=== PATIENT | female | born 1950 | race Caucasian/White ===

== ENCOUNTER 2020-10-17 10:07 | Outpatient (CLI) | payer OTHER, SELFPAY ==
[2020-10-17 18:35] LABS: Basophils Absolute Auto 0.1 K/mm3 (0.0-0.1); Basophils Percent Auto 0.7 % (0.2-1.2); Eosinophils Absolute Auto 0.2 K/mm3 (0-0.3); Eosinophils Percent Auto 2.4 % (0-4.4); Hematocrit 44.9 % (37.0-47.0); Hemoglobin 14.5 g/dL (12.0-15.0); Immature Granulocyte Absolute 0.01 K/mm3 (0.00-0.031); Immature Granulocyte Percent A 0.1 % (0-0.5); Lymphocytes Absolute Auto 2.99 K/mm3 (0.9-3.2); Lymphocytes Percent Auto 35.9 % (18.3-44.2); Mean Corpuscular HGB Conc 32.3 g/dl (32-36); Mean Corpuscular Hemoglobin 28.3 pg (26-34); Mean Corpuscular Volume 87.7 fl (80-100); Mean Platelet Volume 11.1 fl (7.4-10.4); Monocytes Absolute Auto 0.6 K/mm3 (0.1-0.6); Monocytes Percent Auto 7.3 % (2.6-8.5); Neutrophils Absolute Auto 4.5 K/mm3 (1.3-6.7); Neutrophils Percent Auto 53.6 % (45.5-73.1); Platelet Count Result 287 k/mm3 (150-375); Red Blood Count 5.12 M/mm3 (4.2-5.4); Red Cell Distribution Width 13.7 % (11.5-14.5); White Blood Count 8.3 K/mm3 (4.5-10.0)
[2020-10-17 18:41] LABS: Add Urine Microscopic? YES; Appearance Urine Turbid (Clear); Bacteria Urine 4+ /hpf; Bilirubin Urine Negative (Negative); Blood Urine Negative (Negative); Color Urine Yellow (Yellow); Glucose Urine UA Negative (Negative); Ketones Urine Negative (Negative); Leukocyte Esterase Ur Negative LEU/UL (Negative); Mucus Urine Moderate /lpf; Nitrate Urine Negative (Negative); Protein Urine Negative (Negative); Specific Grav Ur 1.026 (1.001-1.035); Squamous Epithelial Cell Urine Rare /hpf (Few); Urobilinogen Urine Negative mg/dL (<2.0)
[2020-10-17 18:48] LABS: Alanine Aminotransferase 39 U/L (4-35); Albumin Level 4.6 g/dL (3.5-5.1); Alkaline Phosphatase 49 U/L (38-126); Anion Gap 5 mmol/L (8-16); Aspartate Amino Transferase 36 U/L (14-36); Bilirubin,Total 0.6 mg/dL (0.2-1.3); Blood Urea Nitrogen 17 mg/dL (7-17); Calcium 9.7 mg/dL (8.4-10.2); Carbon Dioxide 29 mmol/L (22-30); Chloride 103 mmol/L (98-107); Cholesterol 141 mg/dL (0-200); Estimated Glomerular Filt Rate > 60; Glucose 105 mg/dL (65-105); HDL Direct 35 mg/dL; Potassium 4.2 mmol/L (3.4-5.0); Sodium 137 mmol/L (137-145); Triglycerides 190 mg/dL (<150)
[2020-10-17 18:59] LABS: Vitamin D 25 Hydroxy 37.2 ng/mL
[2020-10-17 19:00] LABS: LDL Cholesterol Direct 67 mg/dL
== END 2020-10-17 10:08 | disposition home or self-care (01) ==
LOC: ANHBWCLAB 10:09
PROVIDERS: PCP Family Medicine; Visit Provider Family Medicine
DX: F51.04 Psychophysiologic insomnia (principal); Z79.899 Other long term (current) drug therapy; R79.89 Other specified abnormal findings of blood chemistry; E11.9 Type 2 diabetes mellitus without complications
CPT/HCPCS: 36415; 80053; 80061; 81001; 82306; 83036; 84443; 85025

== ENCOUNTER 2020-10-28 13:25 | Outpatient (CLI) | payer OTHER, SELFPAY ==
[2020-10-28 19:40] LABS: Add Urine Microscopic? YES; Appearance Urine Clear (Clear); Bilirubin Urine Negative (Negative); Blood Urine Negative (Negative); Color Urine Yellow (Yellow); Glucose Urine UA Negative (Negative); Ketones Urine Negative (Negative); Leukocyte Esterase Ur 1+ LEU/UL (NEGATIVE); Nitrate Urine Negative (Negative); Protein Urine Negative (Negative); RBC Urine 0-2 /hpf (0-2); Specific Grav Ur 1.016 (1.001-1.035); Squamous Epithelial Cell Urine Occasional /hpf (Few); Urobilinogen Urine Negative mg/dL (<2.0); WBC Urine 0-3 /hpf (0-3)
== END 2020-10-28 13:26 | disposition home or self-care (01) ==
PROVIDERS: PCP Family Medicine; Visit Provider Family Medicine
DX: R82.90 Unspecified abnormal findings in urine (principal)
CPT/HCPCS: 81001; 87077; 87086; 87088; 87186

== ENCOUNTER 2021-04-23 09:37 | Outpatient (CLI) | payer OTHER, SELFPAY ==
[2021-04-23 18:49] LABS: Hemoglobin 13.5 g/dL (12.0-15.0); Mean Corpuscular HGB Conc 32.1 g/dl (32-36); Mean Corpuscular Volume 90.3 fl (80-100); Mean Platelet Volume 11.4 fl (7.4-10.4); Platelet Count Result 264 k/mm3 (150-375); Red Blood Count 4.65 M/mm3 (4.2-5.4); Red Cell Distribution Width 13.6 % (11.5-14.5); White Blood Count 8.2 K/mm3 (4.5-10.0)
[2021-04-23 19:52] LABS: Vitamin D 25 Hydroxy 37.7 ng/mL
[2021-04-23 20:13] LABS: Alanine Aminotransferase 42 U/L (4-35); Albumin Level 4.7 g/dL (3.5-5.1); Alkaline Phosphatase 53 U/L (38-126); Anion Gap 12 mmol/L (8-16); Aspartate Amino Transferase 34 U/L (14-36); Bilirubin,Total 0.7 mg/dL (0.2-1.3); Blood Urea Nitrogen 18 mg/dL (7-17); Carbon Dioxide 21 mmol/L (22-30); Chloride 104 mmol/L (98-107); Cholesterol 137 mg/dL (0-200); Estimated Glomerular Filt Rate > 60; Glucose 102 mg/dL (65-110); HDL Direct 37 mg/dL; Potassium 4.2 mmol/L (3.4-5.0); Sodium 137 mmol/L (137-145); Triglycerides 220 mg/dL (<150)
[2021-04-23 20:17] LABS: Hemoglobin A1C 6.4 % (<5.7)
[2021-04-23 20:23] LABS: LDL Cholesterol Direct 51 mg/dL
[2021-04-28 01:18] LABS: Vitamin D 1,25 (OH)2 Total 46 pg/mL (18-72); Vitamin D2 1,25 (OH)2 <8 pg/mL; Vitamin D3 1,25 (OH)2 46 pg/mL
== END 2021-04-23 09:38 | disposition home or self-care (01) ==
PROVIDERS: PCP Family Medicine; Visit Provider Family Medicine
DX: E11.9 Type 2 diabetes mellitus without complications (principal); I10 Essential (primary) hypertension; R79.89 Other specified abnormal findings of blood chemistry; E55.9 Vitamin D deficiency, unspecified
CPT/HCPCS: 36415; 80053; 80061; 82306; 82652; 83036; 85027

== ENCOUNTER → 2021-08-04 13:33 | Outpatient (CLI) | payer OTHER, SELFPAY ==
--- NOTE | ~2021-08-04 | MM_ITS ---
EXAMINATION: MM screening [facility] BI w lara HISTORY: Screening mammogram TECHNIQUE: Craniocaudal and mediolateral oblique 3-D tomosynthesis images were obtained and synthetic 2-D images were generated. CAD analysis was submitted and interpreted. COMPARISON: No prior mammogram is available for comparison at this institution. BREAST PARENCHYMAL COMPOSITION: The breasts are almost entirely fatty. FINDINGS: There is no evidence of suspicious mass, calcification, or architectural distortion to sugg est malignancy in either breast. There has been no suspicious interval change. IMPRESSION: 1. No mammographic evidence of malignancy. 2. Recommend routine screening mammography in one year. BI-RADS Category 1: Negative Reviewed, dictated and finalized at location A. LOPMENT WRITER
== END ==
PROVIDERS: PCP Family Medicine; Visit Provider Family Medicine
DX: Z12.31 Encounter for screening mammogram for malignant neoplasm of breast (principal)
CPT/HCPCS: 77063; 77067

== ENCOUNTER 2021-10-28 09:39 | Outpatient (CLI) | payer OTHER, SELFPAY ==
[2021-10-28 19:10] LABS: Hematocrit 42.7 % (37.0-47.0); Mean Corpuscular HGB Conc 32.8 g/dl (32-36); Mean Corpuscular Volume 88.6 fl (80-100); Mean Platelet Volume 10.5 fl (7.4-10.4); Platelet Count Result 342 k/mm3 (150-375); Red Blood Count 4.82 M/mm3 (4.2-5.4); Red Cell Distribution Width 12.7 % (11.5-14.5); White Blood Count 9.1 K/mm3 (4.5-10.0)
[2021-10-28 19:35] LABS: Alanine Aminotransferase 63 U/L (4-35); Albumin Level 4.5 g/dL (3.5-5.1); Alkaline Phosphatase 51 U/L (38-126); Anion Gap 12 mmol/L (8-16); Aspartate Amino Transferase 56 U/L (14-36); Bilirubin,Total 0.4 mg/dL (0.2-1.3); Blood Urea Nitrogen 16 mg/dL (7-17); Calcium 9.4 mg/dL (8.4-10.2); Carbon Dioxide 26 mmol/L (22-30); Chloride 100 mmol/L (98-107); Estimated Glomerular Filt Rate > 60; Glucose 109 mg/dL (65-110); Potassium 4.1 mmol/L (3.4-5.0); Sodium 138 mmol/L (137-145)
[2021-10-28 19:45] LABS: Creatinine Urine 77.7 mg/dL
[2021-10-28 19:49] LABS: MALB Creatinine Ratio 8.1 mg/g (0-30); Microalbumin Urine Random 6.3 mg/L (0-16.7)
[2021-10-28 19:52] LABS: Hemoglobin A1C 6.6 % (<5.7)
== END 2021-10-28 09:40 | disposition home or self-care (01) ==
PROVIDERS: PCP Family Medicine; Visit Provider Family Medicine
DX: E11.9 Type 2 diabetes mellitus without complications (principal); R74.8 Abnormal levels of other serum enzymes; I10 Essential (primary) hypertension
CPT/HCPCS: 36415; 80048; 80076; 82043; 83036; 85027

== ENCOUNTER 2021-12-08 09:02 | Outpatient (CLI) | payer OTHER, SELFPAY ==
[2021-12-08 19:42] LABS: Alanine Aminotransferase 53 U/L (4-35); Albumin Level 4.5 g/dL (3.5-5.1); Alkaline Phosphatase 52 U/L (38-126); Aspartate Amino Transferase 46 U/L (14-36); Bilirubin,Total 0.7 mg/dL (0.2-1.3)
== END 2021-12-08 09:03 | disposition home or self-care (01) ==
LOC: ANHBWCLAB 09:04
PROVIDERS: PCP Family Medicine; Visit Provider Family Medicine
DX: R74.8 Abnormal levels of other serum enzymes (principal)
CPT/HCPCS: 36415; 80076

== ENCOUNTER → 2021-12-23 11:32 | Outpatient (CLI) | payer OTHER, SELFPAY ==
--- NOTE | ~2021-12-23 | US_ITS ---
EXAMINATION: US abdomen limited EXAM DATE: 12/23/2021 11:55 INDICATION: R74.8 - Abnormal levels of other serum enzymes. TECHNIQUE: Multiple grayscale and Doppler images of the abdomen right upper quadrant were obtained (nader y a technologist who performed the scan) and subsequently reviewed. There is no prior study for ivania farias. FINDINGS: A focal hypoechoic region in the pancreatic head, measuring 1.3 x 0.9 x 1.2 cm without any color flow demonstrated. This could be a cyst or cystic lesion, but increased through transmission not confiden tly demonstrated. The pancreatic tail is not visualized. There is echogenic liver parenchyma, hepatic steatosis. There are no focal liver lesions identified. There is no evidence of intrahepatic biliary duct dilation. Portal venous flow was seen in the he patopedal, normal direction and has normal Doppler waveform. No right-sided hydronephrosis. Common bile duct measures 3 mm, which is normal. The gallbladder fossa is unremarkable. IMPRESSION: 1. Indeterminate hypoechoic pancreatic head region. Consider CT abdomen without and with contrast (wi thout pelvis CT). 2. Hepatic steatosis. Reviewed, dictated and finalized at location A. IMPRESSION: 1. Indeterminate hypoechoic pancreatic head region. Consider CT abdomen without and with contrast (without pelvis CT). 2. Hepatic steatosis.
== END ==
PROVIDERS: Visit Provider Family Medicine
DX: R74.8 Abnormal levels of other serum enzymes (principal); K76.0 Fatty (change of) liver, not elsewhere classified
CPT/HCPCS: 76705

== ENCOUNTER 2021-12-24 09:17 | Outpatient (CLI) | payer OTHER, SELFPAY ==
[2021-12-24 19:50] LABS: Hepatitis B Surface Antigen Negative (Negative)
[2021-12-24 19:56] LABS: HAV RESULT Negative (Negative); Hepatitis B Core IgM Result Negative (Negative)
[2021-12-24 20:07] LABS: Hepatitis C Virus Antibody Negative (Negative)
[2021-12-27 13:52] LABS: GGT 25 U/L (3-65)
== END 2021-12-24 09:18 | disposition home or self-care (01) ==
PROVIDERS: PCP Family Medicine; Visit Provider Family Medicine
DX: R74.8 Abnormal levels of other serum enzymes (principal); R74.01 Elevation of levels of liver transaminase levels
CPT/HCPCS: 36415; 80074; 82977

== ENCOUNTER → 2022-01-12 10:37 | Outpatient (CLI) | payer OTHER, SELFPAY ==
--- NOTE | ~2022-01-12 | CT_ITS ---
EXAMINATION: CT abdomen wo/w con INDICATION: Pancreas lesion TECHNIQUE: Computed tomographic images of the abdomen were obtained prior to after the administration of 100 cc of Omnipaque 350 intravenous contrast in the arterial and portal venous phases. The dose-l ength product (DLP) was 2021.47 mGy-cm. Automated exposure control and iterative reconstruction techn ique were employed. COMPARISON: Ultrasound, 12/23/2021 FINDINGS: Minimal dependent atelectasis is present in the lung bases. The heart size is normal. Punct ate calcifications in an otherwise normal spleen likely represent healed granulomatous disease. There is a 6 mm hypoattenuating lesion of the right hepatic lobe, likely cysts. The gallbladder is surgica lly absent. There is mild enlargement of the common bile duct and central intrahepatic ducts which is likely due to post cholecystectomy state. There is a 1.1 x 1.1 x 1.3 cm cystic lesion in the body of the pancreas with indeterminate communication with the main pancreatic duct. There appears to be min imal enhancement in the arterial phase after contrast administration. The adrenal glands are unremark able. Cysts of the kidneys measure up to 1.4 cm on the right. There are no pathologically enlarged ab dominal lymph nodes. There is mild lumbar spondylosis. IMPRESSION: 1. 1.3 cm cystic lesion in the body of the pancreas. The differential diagnosis includes pseudocyst, intraductal papillary mucinous neoplasm (IPMN), mucinous cystic neoplasm (MCN), and the less common s erous cystadenoma and neuroendocrine tumor. Correlate for history of pancreatitis. Follow-up pancreas protocol CT or MRI in two years is recommended. Reviewed, dictated and finalized at location A. IMPRESSION: 1. 1.3 cm cystic lesion in the body of the pancreas. The differential diagnosis includes pseudocyst, intraductal papillary mucinous neoplasm (IPMN), mucinous cystic neoplasm (MCN), and the less common serous cystadenoma and neuroendocrin e tumor. Correlate for history of pancreatitis. Follow-up pancreas protocol CT or MRI in two years is recommended.
[2022-01-12 10:54] LABS: Estimated Glomerular Filt Rate > 60
== END ==
PROVIDERS: PCP Family Medicine; Visit Provider Family Medicine
DX: K86.89 Other specified diseases of pancreas (principal)
CPT/HCPCS: 74170; Q9967

== ENCOUNTER → 2022-03-04 11:58 | Outpatient (CLI) | payer OTHER, SELFPAY ==
--- NOTE | ~2022-03-04 | DEXA_ITS ---
Bone Density Report Name: MARISOL GARCIA Age: 71 Sex: Female Ethnicity: White Date of : 1950 Indication: postmenopausal; screening for osteoporosis; height loss; prior fracture; Referring Provider: TIFFANIE GANDARA Study: Bone densitometry was performed. Exam Date: March 04, 2022 Accession number: [id number] Bone Density: Region BMD T-score Z-score Classification AP Spine (L1-L4) 0.993 -0.5 1.6 Normal Femoral Neck (Left) 0.691 -1.4 0.4 Osteopenia Total Hip (Left) 0.977 0.3 1.8 Normal Femoral Neck (Right) 0.754 -0.9 0.9 Normal Total Hip (Right) 0.948 0.1 1.5 Normal Total Hip Mean 0.963 0.2 1.7 Normal World Health Organization criteria for BMD impression classify patients as: Normal (T-score at or above -1.0), Osteopenia (T-score between -1.0 and -2.5), or Osteoporosis (T-score at or below -2.5). 10-year Fracture Risk(1): Major Osteoporotic Fracture 15% Hip Fracture 1.8% Reported Risk Factors: [place] (), Neck BMD=0.691, BMI=32.8, previous fracture (1) FRAX(R) Version 3.08. Fracture probability calculated for an untreated patient. Fracture probability may be lower if the patient has received treatment. Clinical Information Provided by Patient: Has had a low trauma fracture Has used the following medications: Vitamin D, MTV Patient maximum height was 68.0 Menopause Age: 57 No regular weight bearing exercise Onset of menses at age 15 Number of children 2 Impression: The patient has low bone mass, based on the Left Femoral Neck T-score. The patient has an estimated ten-year risk of hip fracture of 1.8% and an estimated ten-year risk of major fracture of 15%, based on the WHO FRAX algorithm. The patient has risk factors, including: previous fracture. Discussion: BONE DENSITY IS LOW AT ONE OR MORE SKELETAL SITES. This patient's lowest T-score is low at one or more skeletal sites. It meets the World Health Organization's (WHO) criteria for ?low bone mass? (T-score between -1.0 and -2.5). The patient's 10-year risk of fracture as calculated by FRAX is less than the threshold where pharmacological therapy is recommended by the National Osteoporosis Foundation (NOF). However, all treatment decisions require clinical judgment and consideration of individual patient factors, including patient preferences, comorbidities, previous drug use, risk factors not captured in the FRAX model (e.g., frailty, falls, vitamin D deficiency, increased bone turnover, interval significant decline in bone density) and possible under or overestimation of fracture risk by FRAX. The patient should follow a healthful lifestyle (good nutrition with adequate calcium and vitamin D, and appropriate weight-bearing exercise). Follow-Up: Consider repeating this study in 2 to 3 years to reassess this patient's status,
== END ==
PROVIDERS: PCP Family Medicine; Visit Provider Family Medicine
DX: Z78.0 Asymptomatic menopausal state (principal); M85.852 Other specified disorders of bone density and structure, left thigh
CPT/HCPCS: 77080

== ENCOUNTER 2022-04-22 08:33 | Outpatient (CLI) | payer OTHER, SELFPAY ==
[2022-04-22 21:19] LABS: Alanine Aminotransferase 26 U/L (6-35); Albumin Level 4.6 g/dL (3.5-5.1); Alkaline Phosphatase 55 U/L (38-126); Aspartate Amino Transferase 48 U/L (14-36); Bilirubin,Total 0.6 mg/dL (0.2-1.3)
== END 2022-04-22 08:34 | disposition home or self-care (01) ==
PROVIDERS: PCP Family Medicine; Visit Provider Family Medicine
DX: R74.8 Abnormal levels of other serum enzymes (principal)
CPT/HCPCS: 36415; 80076

== ENCOUNTER 2022-04-27 10:53 | Outpatient (CLI) | payer OTHER, SELFPAY ==
[2022-04-27 19:13] LABS: Alanine Aminotransferase 27 U/L (6-35); Alkaline Phosphatase 62 U/L (38-126); Aspartate Amino Transferase 86 U/L (14-36); Bilirubin,Total 0.6 mg/dL (0.2-1.3)
[2022-04-27 19:16] LABS: Creatinine Urine 35.7 mg/dL
[2022-04-27 19:53] LABS: MALB Creatinine Ratio < 16.8 mg/g (0-30); Microalbumin Urine Random < 6.0 mg/L (0-16.7)
== END 2022-04-27 10:54 | disposition home or self-care (01) ==
PROVIDERS: PCP Family Medicine; Visit Provider Family Medicine
DX: K86.89 Other specified diseases of pancreas (principal); R74.8 Abnormal levels of other serum enzymes; I10 Essential (primary) hypertension; E78.5 Hyperlipidemia, unspecified; E11.9 Type 2 diabetes mellitus without complications; R79.89 Other specified abnormal findings of blood chemistry; F51.04 Psychophysiologic insomnia; H26.9 Unspecified cataract; K46.9 Unspecified abdominal hernia without obstruction or gangrene
CPT/HCPCS: 36415; 80076; 82043; 83036

== ENCOUNTER 2022-08-03 09:20 | Outpatient (CLI) | payer OTHER, SELFPAY ==
[2022-08-03 18:57] LABS: Alanine Aminotransferase 28 U/L (6-35); Albumin Level 4.6 g/dL (3.5-5.1); Alkaline Phosphatase 56 U/L (38-126); Aspartate Amino Transferase 61 U/L (14-36); Bilirubin,Total 0.7 mg/dL (0.2-1.3)
[2022-08-03 19:29] LABS: Iron 85 ug/dL (37-170)
[2022-08-03 19:40] LABS: Percent Iron Saturation 23 % (20-50)
== END 2022-08-03 09:21 | disposition home or self-care (01) ==
PROVIDERS: PCP Family Medicine; Visit Provider Family Medicine
DX: R74.8 Abnormal levels of other serum enzymes (principal)
CPT/HCPCS: 36415; 80076; 82728; 83540; 83550

== ENCOUNTER → 2022-08-12 10:41 | Outpatient (CLI) | payer OTHER, SELFPAY ==
--- NOTE | ~2022-08-12 | MM_ITS ---
EXAMINATION: MM screening michelle BI w lara HISTORY: Screening mammogram TECHNIQUE: Craniocaudal and mediolateral oblique 3-D tomosynthesis images were obtained and synthetic 2-D images were generated. CAD analysis was submitted and interpreted. COMPARISON: 08/04/2021 BREAST PARENCHYMAL COMPOSITION: There are scattered areas of fibroglandular density. FINDINGS: No suspicious mass, calcification, or architectural distortion are identified in either daniel ast to suggest malignancy. There has been no suspicious interval change. IMPRESSION: 1. No mammographic evidence of malignancy. 2. Recommend routine screening mammography in one year. BI-RADS Category 1: Negative Reviewed, dictated and finalized at location A. NER
== END ==
PROVIDERS: PCP Family Medicine; Visit Provider Family Medicine
DX: Z12.31 Encounter for screening mammogram for malignant neoplasm of breast (principal)
CPT/HCPCS: 77063; 77067

== ENCOUNTER 2022-08-17 00:41 | Day surgery (SDC) | payer OTHER, SELFPAY ==
[2022-08-06 09:36] VITALS: BMI 30.9
[2022-08-17 10:10] VITALS: BP 144/74; PULSE 81; RESP 18; TEMP 36.3; O2SAT 100
[2022-08-17] MEDS: LACTATED RINGERS 1,000 ML 150 ML IV CONT (10:22)
[2022-08-17 10:29] LABS: Glucose Point of Care 103 mg/dl (65-105)
--- NOTE | 2022-08-17 10:43 | PM.HPGS ---
History of Present Illness History of Present Illness Consent: Risks, benefits, and alternatives have been discussed and questions answered. Patient agrees to proceed with procedure. Chief complaint: neoplasm screening Narrative: Angelina Barboza is a 72 year old female Presents for screening colonoscopy. Patient's current weight appetite and bowel movements are normal. Patient denies abdominal pain. She has had no bleeding. Family history is significant for 3 grandparents in 1 cousin of had colon cancer. There are no first-degree relatives with polyps. Patient reports her bowel habits are normal. Previous colonoscopy 5 years ago was unremarkable. Review of Systems Review of Systems: Review of systems noncontributory. [facility] Past Medical History Medical History (Updated 04/27/22 @ 10:45 by Lobito Bowden MD) Cataract Cholecystectomy planned Diabetes Hernia IBS (irritable bowel syndrome) Low vitamin D level Family History Family History (Reviewed 10/28/21 @ 09:22 by Kierra Fontenot [facility]) Mother , heart attack No problems noted. Father , sepsis No problems noted. Grandparent , colon cancer No problems noted. Grandparent Colon cancer Grandparent Carcinoma of colon Grandparent Cerebrovascular accident Sibling FH: coronary artery bypass surgery Social History Social History (Reviewed 10/28/21 @ 09:22 by Kierra Fontenot [facility]) Smoking status: Never smoker Alcohol intake: never Substance use: never Substance use type: does not use Living arrangements: with family Spiritual care concerns: No Meds Home Medications and Allergies Home Medications Medication Instructions Recorded Confirmed Type turmeric root extract 500 mg 500 mg PO DAILY 07/16/19 08/06/22 History capsule omega-3 fatty acids 1,000 mg 1,000 mg PO DAILY #90 caps 04/21/21 08/06/22 Rx capsule (Fish Oil Concentrate) doxepin 10 mg/mL oral concentrate 5 mg (0.5 mL) PO .hs sleep #120 mL 12/30/21 08/06/22 Rx metformin 500 mg tablet 500 mg PO DAILY #90 tabs 02/22/22 08/06/22 Rx lisinopril 20 See Rx Instructions .Route 06/19/22 08/06/22 Rx mg-hydrochlorothiazide 12.5 mg .COMPLEX #180 tabs tablet simvastatin 40 mg tablet See Rx Instructions .Route 06/19/22 08/06/22 Rx .COMPLEX #90 tabs calcium carb-ergocalciferol (vit 1 tablet PO DAILY 08/06/22 08/06/22 History D2) 600 mg calcium-200 unit tablet Allergies Allergy/AdvReac Type Severity Reaction Status Date / Time No Known Allergies Allergy Verified 08/17/22 10:09 Vital Signs Vital Signs - 24 hr 08/17/22 10:10 Temperature 97.3 F L Pulse Rate 81 Respiratory Rate 18 Blood Pressure 144/74 H Pulse Oximetry 100 Oxygen Delivery Room Air Exam Narrative: Physical exam reveals patient to be alert. Vital signs stable. HEENT exam is unremarkable. Patient anicteric. Lungs are clear to auscultation and percussion. Heart is without murmur or extra sounds. Abdomen bowel sounds present soft nontender with no organomegaly. Digital external rectal exam is normal. Assessment and Plan Assessment and plan (1) Colon cancer screening: Code(s): Z12.11 - Encounter for screening for malignant neoplasm of colon Status: Acute Assessment and Plan: Patient presents for screening colonoscopy. Further recommendations will be given after endoscopy. Suggest follow-up colonoscopy at 5-10 year intervals.
[2022-08-17 11:07] VITALS: BP 100/52; PULSE 62; RESP 20; O2SAT 96
--- NOTE | 2022-08-17 11:08 | SUR.OPER ---
sigmoid colon polyp not retrieved. Dr. Hines notified.
[2022-08-17 11:17] VITALS: BP 109/59; PULSE 64; RESP 20; O2SAT 96
[2022-08-17 11:27] VITALS: BP 114/59; PULSE 65; RESP 20; O2SAT 98
--- NOTE | 2022-08-17 11:49 | WPDANESEPPF ---
Anes - Initial Pre Proc Eval Procedure: Operation Date: 08/17/22 11:15 Proposed Procedures p Screening Colonoscopy - Lionel Hines MD Date/Time: 08/17/22 11:49 Surgeon: Lionel Hines MD Pre Op Diagnosis: neoplasm screening Patient Data Age: 72 Gender: F Height: 1.68 m Weight: 86.5 kg Last Vital Signs Temp 97.3 F L 08/17/22 10:10 Pulse 65 08/17/22 11:27 Resp 20 08/17/22 11:27 BP 114/59 L 08/17/22 11:27 Pulse Ox 98 08/17/22 11:27 O2 Del Method Room Air 08/17/22 11:27 Allergies Allergy/AdvReac Type Severity Reaction Status Date / Time No Known Allergies Allergy Verified 08/17/22 10:09 Home Medications Medication Instructions Recorded Confirmed Type turmeric root extract 500 mg 500 mg PO DAILY 07/16/19 08/06/22 History capsule omega-3 fatty acids 1,000 mg 1,000 mg PO DAILY #90 caps 04/21/21 08/06/22 Rx capsule (Fish Oil Concentrate) doxepin 10 mg/mL oral concentrate 5 mg (0.5 mL) PO .hs sleep #120 mL 12/30/21 08/06/22 Rx metformin 500 mg tablet 500 mg PO DAILY #90 tabs 02/22/22 08/06/22 Rx lisinopril 20 See Rx Instructions .Route 06/19/22 08/06/22 Rx mg-hydrochlorothiazide 12.5 mg .COMPLEX #180 tabs tablet simvastatin 40 mg tablet See Rx Instructions .Route 06/19/22 08/06/22 Rx .COMPLEX #90 tabs calcium carb-ergocalciferol (vit 1 tablet PO DAILY 08/06/22 08/06/22 History D2) 600 mg calcium-200 unit tablet Laboratory Tests 08/17/22 10:16 POC Capillary Glucose 103 mg/dl mg/dl (65-105) Patient hx anesthesia problems: none Family hx anesthesia problems: none Results Review: All pre-operative results and documents have been reviewed as part of the pre-operative evaluation. [facility] Past Medical History Medical History (Updated 04/27/22 @ 10:45 by Lobito Bowden MD) Cataract Cholecystectomy planned Diabetes Hernia IBS (irritable bowel syndrome) Low vitamin D level Family History Family History Mother , heart attack No problems noted. Father , sepsis No problems noted. Grandparent , colon cancer No problems noted. Grandparent Colon cancer Grandparent Carcinoma of colon Grandparent Cerebrovascular accident Sibling FH: coronary artery bypass surgery Social History Social History Smoking status: Never smoker Alcohol intake: never Substance use: never Substance use type: does not use Living arrangements: with family Spiritual care concerns: No Anes - Eval Final PreProcedure Day of Procedure 08/17/22 11:49 Patient weight: normal Heart: regular rate and rhythm Lungs: clear to auscultation Airway: Mallampati scale class II Neurological: alert and oriented Last oral intake: >/= 8 hours ASA classification: II Emergent: no Anesthetic plan: proceed Anesthesia type and monitoring: general GIVS and standard monitoring Results Review: All pre-operative results and documents have been reviewed as part of the pre-operative evaluation. Informed Consent: The patient's anesthetic plan and its attendant risks and benefits were discussed with the patient/family/POA. Questions were solicited and answers provided to the satisfaction of the patient/family/POA.
== END 2022-08-17 11:39 | disposition home or self-care (01) ==
PROVIDERS: PCP Family Medicine; Visit Provider Internal Medicine Gastroenterology
PROC: 0DJD8ZZ Inspection of Lower Intestinal Tract, Via Natural or Artificial Opening Endoscopic (ICD-10-PCS; CPT 45378; principal; 2022-08-17 11:15)
DX: Z12.11 Encounter for screening for malignant neoplasm of colon (principal); K64.8 Other hemorrhoids; K57.30 Diverticulosis of large intestine without perforation or abscess without bleeding; K63.5 Polyp of colon; E11.9 Type 2 diabetes mellitus without complications; E55.9 Vitamin D deficiency, unspecified; K58.9 Irritable bowel syndrome, unspecified; Z79.84 Long term (current) use of oral hypoglycemic drugs
CPT/HCPCS: 45385; 82948; J2704; J7120

== ENCOUNTER 2022-10-29 09:24 | Outpatient (CLI) | payer OTHER, SELFPAY ==
[2022-10-29 18:36] LABS: Basophils Absolute Auto 0.1 K/mm3 (0.0-0.1); Basophils Percent Auto 0.9 % (0.2-1.2); Eosinophils Absolute Auto 0.2 K/mm3 (0-0.3); Hematocrit 44.9 % (37.0-47.0); Immature Granulocyte Absolute 0.02 K/mm3 (0.00-0.031); Immature Granulocyte Percent A 0.2 % (0-0.5); Lymphocytes Absolute Auto 2.63 K/mm3 (0.9-3.2); Lymphocytes Percent Auto 30.3 % (18.3-44.2); Mean Corpuscular HGB Conc 31.2 g/dl (32-36); Mean Corpuscular Hemoglobin 28.5 pg (26-34); Mean Corpuscular Volume 91.4 fl (80-100); Mean Platelet Volume 11.4 fl (7.4-10.4); Monocytes Absolute Auto 0.6 K/mm3 (0.1-0.6); Monocytes Percent Auto 6.5 % (2.6-8.5); Neutrophils Absolute Auto 5.2 K/mm3 (1.3-6.7); Neutrophils Percent Auto 60.1 % (45.5-73.1); Platelet Count Result 305 k/mm3 (150-375); Red Blood Count 4.91 M/mm3 (4.2-5.4); White Blood Count 8.7 K/mm3 (4.5-10.0)
[2022-10-29 19:05] LABS: Alanine Aminotransferase 27 U/L (6-35); Albumin Level 4.8 g/dL (3.5-5.1); Alkaline Phosphatase 58 U/L (38-126); Anion Gap 7 mmol/L (8-16); Aspartate Amino Transferase 34 U/L (14-36); Bilirubin,Total 0.6 mg/dL (0.2-1.3); Blood Urea Nitrogen 20 mg/dL (7-17); Calcium 9.6 mg/dL (8.4-10.2); Carbon Dioxide 30 mmol/L (22-30); Chloride 99 mmol/L (98-107); Cholesterol 132 mg/dL (0-200); Estimated Glomerular Filt Rate > 60; Glucose 97 mg/dL (65-110); HDL Direct 34 mg/dL; Potassium 4.1 mmol/L (3.4-5.0); Sodium 136 mmol/L (137-145); Triglycerides 165 mg/dL (<150)
[2022-10-29 19:21] LABS: LDL Cholesterol Direct 54 mg/dL
[2022-10-29 20:14] LABS: Hemoglobin A1C 6.1 % (<5.7)
== END 2022-10-29 09:25 | disposition home or self-care (01) ==
PROVIDERS: PCP Family Medicine; Visit Provider Family Medicine
DX: E11.9 Type 2 diabetes mellitus without complications (principal); E78.5 Hyperlipidemia, unspecified; I10 Essential (primary) hypertension; R74.8 Abnormal levels of other serum enzymes; R79.89 Other specified abnormal findings of blood chemistry
CPT/HCPCS: 36415; 80053; 80061; 83036; 85025

== ENCOUNTER 2023-05-11 09:25 | Outpatient (CLI) | payer OTHER, SELFPAY ==
[2023-05-11 18:14] LABS: Hematocrit 45.4 % (37.0-47.0); Hemoglobin 13.9 g/dL (12.0-15.0); Mean Corpuscular HGB Conc 30.6 g/dl (32-36); Mean Corpuscular Hemoglobin 28.8 pg (26-34); Mean Platelet Volume 11.3 fl (7.4-10.4); Platelet Count Result 347 k/mm3 (150-375); Red Blood Count 4.83 M/mm3 (4.2-5.4); Red Cell Distribution Width 12.5 % (11.5-14.5); White Blood Count 7.7 K/mm3 (4.5-10.0)
[2023-05-11 18:41] LABS: Appearance Urine Clear (Clear); Bilirubin Urine Negative (Negative); Blood Urine Negative (Negative); Color Urine Yellow (Yellow); Glucose Urine UA Negative (Negative); Ketones Urine Negative (Negative); Leukocyte Esterase Ur Negative LEU/UL (NEGATIVE); Nitrate Urine Negative (Negative); Protein Urine Negative (Negative); Specific Grav Ur 1.022 (1.001-1.035); Urobilinogen Urine 0.2 mg/dL (<2.0); pH Urine 6.5 (5.0-9.0)
[2023-05-11 19:05] LABS: Anion Gap 10 mmol/L (8-16); Blood Urea Nitrogen 14 mg/dL (7-17); Calcium 9.5 mg/dL (8.4-10.2); Carbon Dioxide 26 mmol/L (22-30); Chloride 102 mmol/L (98-107); Cholesterol 133 mg/dL (0-200); Estimated Glomerular Filt Rate > 60; Glucose 91 mg/dL (65-110); HDL Direct 27 mg/dL; Sodium 138 mmol/L (137-145); Triglycerides 244 mg/dL (<150)
[2023-05-11 19:15] LABS: LDL Cholesterol Direct 59 mg/dL
[2023-05-11 19:24] LABS: Add Urine Microscopic? NO
[2023-05-11 19:35] LABS: Creatinine Urine 124.8 mg/dL
[2023-05-11 19:39] LABS: MALB Creatinine Ratio 6.9 mg/g (0-30); Microalbumin Urine Random 8.6 mg/L (0-16.7)
[2023-05-11 21:20] LABS: Hemoglobin A1C 6.1 % (<5.7)
== END 2023-05-11 09:26 | disposition home or self-care (01) ==
PROVIDERS: PCP Nurse Practitioner Adult Health; Visit Provider Nurse Practitioner Adult Health
DX: E11.9 Type 2 diabetes mellitus without complications (principal); I10 Essential (primary) hypertension; R42 Dizziness and giddiness; R53.83 Other fatigue
CPT/HCPCS: 36415; 80048; 80061; 81003; 82043; 83036; 84443; 85027

== ENCOUNTER 2023-06-15 14:19 | Outpatient (CLI) | payer OTHER, SELFPAY ==
--- NOTE | 2023-06-15 14:40 | ECHO_ITS ---
Patient Info Name: Angelina Barboza Age: 73 years : 1950 Gender: Female Ht: 65 in Wt: 203 lbs BSA: 2.09 m2 HR: 75 bpm BP: 128 / 75 mmHg Heart Rhythm: Sinus Rhythm Technical Quality: Good Exam Date: 06/15/2023 2:45 PM Exam Location: [facility] Patient Status: Outpatient Admit Date: 06/15/2023 Staff Ordering Physician: Kayley Coles APRN Software Developer Intern: Khushboo Dooley RDCS Attending Provider: Kayley Coles APRN Referring Physician: Sanket PARKER; Exam Type: CA echo doppler color flow Study Info Indications - murmur Complete two-dimensional, color flow and Doppler transthoracic echocardiogram is performed. Summary 1. Complete two-dimensional, color flow and Doppler transthoracic echocardiogram is performed. 2. There is mildly increased left ventricular wall thickness with moderate basal septal hypertrophy. 3. Left ventricular chamber dimension is normal. 4. Left ventricular systolic function is normal, estimated at 65-70%. 5. The left ventricular diastolic function is grade I diastolic dysfunction. 6. Left atrial chamber dimension is mildly enlarged. 7. The aortic valve is possibly bicuspid. 8. There is mild aortic valve regurgitation. 9. There is mild tricuspid valve regurgitation. Left Ventricle There is mildly increased left ventricular wall thickness with moderate basal septal hypertrophy. Left ventricular chamber dimension is normal. Left ventricular systolic function is normal, estimated at 65-70%. The left ventricular diastolic function is grade I diastolic dysfunction. Right Ventricle Right ventricular chamber dimension is normal. Right ventricular systolic function is normal. Left Atria Left atrial chamber dimension is mildly enlarged. Right Atria Right atrial chamber dimension is normal. Atrial Septum Intact interatrial septum visualized by color flow imaging. Aortic Valve The aortic valve is possibly bicuspid. There is no aortic valve stenosis. There is mild aortic valve regurgitation. Pulmonic Valve The pulmonic valve is normal. There is no pulmonic valve stenosis. There is trace pulmonic regurgitation. Mitral Valve The mitral valve has normal leaflets. There is no mitral valve stenosis. There is trace mitral valve regurgitation. Tricuspid Valve The tricuspid valve leaflets are normal. There is no significant tricuspid valve stenosis. There is mild tricuspid valve regurgitation. No pulmonary hypertension, estimated pulmonary arterial systolic pressure is 18 mmHg. Pericardium/Pleural The pericardium appears normal. There is no pericardial effusion. Inferior Vena Cava Normal inferior vena cava with >50% collapse upon inspiration consistent with normal right atrial pressure, 8 mmHg. Aorta The aortic root size at the sinus of Valsalva is normal. Left Ventricular Outflow Tract Name Value Normal LVOT 2D LVOT Diameter 1.8 cm LVOT Doppler LVOT Peak Gradient 9 mmHg LVOT Mean Gradient 5 mmHg LVOT VTI 35 cm LVOT VTI/AV VTI Ratio 0.8 LVOT Stroke Volume 94 ml LVOT CO
== END 2023-06-15 14:20 | disposition home or self-care (01) ==
PROVIDERS: PCP Nurse Practitioner Adult Health; Visit Provider Nurse Practitioner Adult Health
DX: R01.1 Cardiac murmur, unspecified (principal); I35.1 Nonrheumatic aortic (valve) insufficiency; I07.1 Rheumatic tricuspid insufficiency; R93.1 Abnormal findings on diagnostic imaging of heart and coronary circulation
CPT/HCPCS: 93306

== ENCOUNTER → 2023-11-04 11:17 | Outpatient (CLI) | payer OTHER, SELFPAY ==
--- NOTE | ~2023-11-04 | MM_ITS ---
EXAMINATION: MM screening [facility] BI w lara HISTORY: Screening TECHNIQUE: Craniocaudal and mediolateral oblique 3-D tomosynthesis images were obtained and synthetic 2-D images were generated. CAD analysis was submitted and interpreted. COMPARISON: Comparison to multiple prior studies sequentially, with oldest reviewed study dated 07/08. BREAST PARENCHYMAL COMPOSITION: There are scattered areas of fibroglandular density. FINDINGS: There is no evidence of suspicious mass, calcification, or architectural distortion to sugg est malignancy in either breast. There has been no suspicious interval change. IMPRESSION: 1. No mammographic evidence of malignancy. 2. Recommend routine screening mammography in one year. BI-RADS Category 1: Negative Reviewed, dictated and finalized at location A. USION PARAEDUCATOR
== END ==
PROVIDERS: PCP Nurse Practitioner Adult Health; Visit Provider Nurse Practitioner Adult Health
DX: Z12.31 Encounter for screening mammogram for malignant neoplasm of breast (principal)
CPT/HCPCS: 77063; 77067

== ENCOUNTER 2023-11-07 10:36 | Outpatient (CLI) | payer OTHER, SELFPAY ==
[2023-11-07 20:34] LABS: Vitamin D 25 Hydroxy 31.7 ng/mL
[2023-11-07 20:35] LABS: Alanine Aminotransferase 43 U/L (6-35); Albumin Level 4.8 g/dL (3.5-5.1); Alkaline Phosphatase 58 U/L (38-126); Anion Gap 12 mmol/L (8-16); Aspartate Amino Transferase 71 U/L (14-36); Bilirubin,Total 0.7 mg/dL (0.2-1.3); Blood Urea Nitrogen 17 mg/dL (7-17); Calcium 9.9 mg/dL (8.4-10.2); Carbon Dioxide 25 mmol/L (22-30); Chloride 102 mmol/L (98-107); Cholesterol 129 mg/dL (0-200); Estimated Glomerular Filt Rate > 60; Glucose 84 mg/dL (65-110); HDL Direct 33 mg/dL; Potassium 3.7 mmol/L (3.4-5.0); Sodium 139 mmol/L (137-145); Triglycerides 321 mg/dL (<150)
[2023-11-07 20:37] LABS: Creatinine Urine 67.9 mg/dL
[2023-11-07 20:46] LABS: LDL Cholesterol Direct 49 mg/dL
[2023-11-07 21:07] LABS: MALB Creatinine Ratio < 8.8 mg/g (0-30); Microalbumin Urine Random < 6.0 mg/L (0-16.7)
[2023-11-07 21:58] LABS: Hemoglobin A1C 6.7 % (<5.7)
== END 2023-11-07 10:37 | disposition home or self-care (01) ==
PROVIDERS: PCP Nurse Practitioner Adult Health; Visit Provider Nurse Practitioner Adult Health
DX: E11.9 Type 2 diabetes mellitus without complications (principal); E55.9 Vitamin D deficiency, unspecified
CPT/HCPCS: 36415; 80053; 80061; 82043; 82306; 83036

== ENCOUNTER 2023-11-15 10:50 | Outpatient (CLI) | payer OTHER, SELFPAY | END 2023-11-15 10:51 | disposition home or self-care (01) | LOC: ANHBWCAUD 10:51 | PROVIDERS: PCP Nurse Practitioner Adult Health; Visit Provider Nurse Practitioner Adult Health | DX: H90.3 Sensorineural hearing loss, bilateral (principal); H93.13 Tinnitus, bilateral | CPT/HCPCS: 92557; 92567 ==

== ENCOUNTER 2024-01-10 10:30 | Outpatient (RCR) | payer OTHER, SELFPAY | END 2024-02-27 23:59 | disposition home or self-care (01) | LOC: ANHBWCAUD 10:30 | PROVIDERS: PCP Nurse Practitioner Adult Health; Visit Provider Nurse Practitioner Adult Health | DX: Z46.1 Encounter for fitting and adjustment of hearing aid (principal) | CPT/HCPCS: 99199; V5261 ==

== ENCOUNTER 2024-02-03 14:39 | Emergency (ER) | payer OTHER, SELFPAY ==
[2024-02-03 14:48] VITALS: BP 167/60; PULSE 87; RESP 16; TEMP 37.3; O2SAT 99
--- NOTE | 2024-02-03 15:01 | ED.SKABFB ---
HPI - Skin/Abscess/Foreign Bdy General Chief complaint: Skin/Abscess/Foreign Body Stated complaint: Rash Time Seen by Provider: 02/03/24 15:01 Source: patient Mode of arrival: ambulatory Limitations: no limitations History of Present Illness HPI narrative: 73 year presents with complaint erythematous skin lesions for the past 2 weeks. First 1 started to left ear, then had them to her left thigh. Patient applying calamine with no relief of symptoms. Patient reports that lesions are itchy, mild pain. Denies injury. All systems reviewed and negative except as noted above. Related Data Home Medications Medication Instructions Recorded Confirmed turmeric root extract 500 mg 500 mg PO DAILY 07/16/19 11/07/23 capsule calcium carb-ergocalciferol (vit 1 tablet PO DAILY 08/06/22 11/07/23 D2) 600 mg calcium-200 unit tablet Allergies Allergy/AdvReac Type Severity Reaction Status Date / Time No Known Allergies Allergy Verified 11/07/23 10:03 Review of Systems Review of Systems: CONSTITUTIONAL: Denies fever, chills, or sweats. EYES: Denies visual changes, redness, or discharge. ENT: Denies rhinorrhea, congestion, sore throat, or otalgia. CARDIOVASCULAR: Denies chest pain, palpitations, or edema. RESPIRATORY: Denies cough or dyspnea. GASTROINTESTINAL: Denies abdominal pain, nausea, vomiting, or diarrhea. GENITOURINARY: Denies dysuria or hematuria. SKIN: Reports rash and itching. MUSCULOSKELETAL: Denies back pain, joint pain, or myalgia. NEUROLOGIC: Denies headache, numbness, or weakness. PSYCHIATRIC: Denies anxiety or depression. All other systems reviewed are negative, except as documented in HPI. [facility] Past Medical History Medical History (Updated 02/03/24 @ 15:07 by Yuki Ramos NP) Cataract Cholecystectomy planned Diabetes Hernia IBS (irritable bowel syndrome) Family History Family History Mother , heart attack No problems noted. Father , sepsis No problems noted. Grandparent , colon cancer No problems noted. Grandparent Colon cancer Grandparent Carcinoma of colon Grandparent Cerebrovascular accident Sibling FH: coronary artery bypass surgery Social History Social History (Updated 10/28/22 @ 10:43 by JUAN Gonzalez Smoking status: Never smoker Alcohol intake: never Substance use: never Substance use type: does not use Lack of Transportation: No Lack of Food: Never True Current Housing: I Have Housing Concerned About Future Housing: No Difficulty Paying Gas/Electric Bills: No Difficulty Paying for Meds: No Currently Unemployed: No Education: High School Diploma/GED Difficulty w/ Childcare or Family Care: No Living arrangements: with family Spiritual care concerns: No Comments At time of signature, agree with nursing past medical, surgical, social and family history. There is no relevant family history pertinent to the presenting complaint. Exam Narrative: GENERAL: This is a well-nourished, well-developed patient, in no apparent distress. HEAD: normocephalic, atraumatic. EYES: PERRL. Sclera clear/white. Vision is grossly intact. EARS: External ears normal NOSE: External nose normal NECK: Neck supple, non-tender without lymphadenopathy, masses or thyromegaly. CARDIOVASCULAR: Regular rate and rhythm without murmurs, gallops, or rubs. RESPIRATORY: Clear to auscultation. Breath sounds equal bilaterally. No wheezes, rales, or rhonchi. SKIN: warm, Dry, intact , good texture and turgor. Erythematous circular lesions with scabbing to posterior neck blood pressure, right upper back. Similar healed lesions to left lateral thigh. No drainage or fluctuance. NEURO: awake, alert, and oriented to person, place and time. There were no obvious focal neurologic abnormalities. EXTREMITIES: No joint tenderness,
== END 2024-02-03 15:17 | disposition home or self-care (01) ==
PROVIDERS: Emergency Provider Nurse Practitioner Family; PCP Family Medicine
DX: L08.9 Local infection of the skin and subcutaneous tissue, unspecified (principal); B95.8 Unspecified staphylococcus as the cause of diseases classified elsewhere; E11.9 Type 2 diabetes mellitus without complications
CPT/HCPCS: 99213; G0463

== ENCOUNTER 2024-05-15 07:39 | Outpatient (CLI) | payer OTHER, SELFPAY ==
[2024-05-15 18:53] LABS: Alanine Aminotransferase 42 U/L (6-35); Albumin Level 4.7 g/dL (3.5-5.1); Alkaline Phosphatase 53 U/L (38-126); Anion Gap 11 mmol/L (4-12); Aspartate Amino Transferase 87 U/L (14-36); Bilirubin,Total 0.7 mg/dL (0.2-1.3); Blood Urea Nitrogen 17 mg/dL (7-17); Calcium 9.4 mg/dL (8.4-10.2); Carbon Dioxide 27 mmol/L (22-30); Chloride 96 mmol/L (98-107); Cholesterol 130 mg/dL (0-200); Estimated Glomerular Filt Rate > 60; Glucose 115 mg/dL (65-110); HDL Direct 33 mg/dL; Potassium 4.1 mmol/L (3.4-5.0); Sodium 134 mmol/L (137-145); Triglycerides 305 mg/dL (<150)
[2024-05-15 19:05] LABS: LDL Cholesterol Direct 40 mg/dL
[2024-05-15 19:25] LABS: Vitamin D 25 Hydroxy 37.7 ng/mL
[2024-05-15 19:39] LABS: Creatinine Urine 108.2 mg/dL
[2024-05-15 19:43] LABS: MALB Creatinine Ratio 13.5 mg/g (0-30); Microalbumin Urine Random 14.6 mg/L (0-16.7)
[2024-05-15 20:56] LABS: Hemoglobin A1C 6.5 % (<5.7)
== END 2024-05-15 07:40 | disposition home or self-care (01) ==
PROVIDERS: PCP Nurse Practitioner Adult Health; Visit Provider Nurse Practitioner Adult Health
DX: E11.9 Type 2 diabetes mellitus without complications (principal); E55.9 Vitamin D deficiency, unspecified; R20.0 Anesthesia of skin
CPT/HCPCS: 36415; 80053; 80061; 82043; 82306; 82565; 82607; 83036

== ENCOUNTER 2024-06-07 10:23 | Emergency (ER) | payer OTHER, SELFPAY ==
--- NOTE | ~2024-06-07 | XR_ITS ---
[id number] Ordering provider: Cristian Ugalde MD History: . fall, pain, EVALUATE FOR ANTERIOR RIB FX . Comparison: None. FINDINGS: BONES: No acute left rib fracture or fracture of the visualized osseous structures. LEFT LUNG: No effusions or infiltrates. No pneumothorax. SOFT TISSUES: Normal. IMPRESSION: No left rib fracture. Reviewed, dictated and finalized at location A. IMPRESSION: No left rib fracture.
--- NOTE | ~2024-06-07 | CT_ITS ---
CT Scan of the Chest without Contrast: Clinical Indication: Anterior left rib fracture Technique: Contiguous sections were acquired throughout the chest without intravenous contrast. Dose reduction technique was used on this scan by utilizing automated exposure control and iterative recon struction technique. The dose-length product (DLP) was 410.02 mGy-cm. Findings: There is no evidence of any significant mediastinal, hilar or axillary lymphadenopathy. The mediastin al soft tissues appear normal. There is no evidence of pleural or pericardial effusion. 4 mm right apical pulmonary nodule present. Images through the upper abdomen reveal no abnormalities. No rib fracture seen. Impression: No rib fracture seen. 4 mm right apical pulmonary nodule. According to Fleischner Society criteria, for a low-risk patient, no further follow-up required. For a high-risk patient, consider 12 month follow-up CT. Reviewed, dictated and finalized at [facility]. Impression: No rib fracture seen. 4 mm right apical pulmonary nodule. According to Fleischner Society criteria, f or a low-risk patient, no further follow-up required. For a high-risk patient, consider 12 month follow-up CT.
[2024-06-07 10:35] VITALS: BP 151/68; PULSE 69; RESP 16; TEMP 36.5; O2SAT 98
[2024-06-07] MEDS: ACETAMINOPHEN 500 MG TABLET 1000 MG PO (12:22)
[2024-06-07] MEDS: LIDOCAINE 5% PATCH 1 PATCH TRANSDERM (12:22)
--- NOTE | 2024-06-07 12:50 | ED.GENADULT ---
HPI - General Adult General Chief complaint: Fall Stated complaint: fall, rib injury Time Seen by Provider: 06/07/24 11:09 History of Present Illness HPI narrative: This is a pleasant 74-year-old female presenting 3 days after a fall. Patient tripped on a gravel and landed on her left side. She did not strike her head. She felt okay after the fall but she has having worsening pain on the left side of her ribcage. Is worse with palpation. No fevers chills shortness of breath or productive cough. He has been taking naproxen with some relief. Related Data Home Medications Medication Instructions Recorded Confirmed turmeric root extract 500 mg 500 mg PO DAILY 07/16/19 05/10/24 capsule calcium carb-ergocalciferol (vit 1 tablet PO DAILY 08/06/22 05/10/24 D2) 600 mg calcium-200 unit tablet Allergies Allergy/AdvReac Type Severity Reaction Status Date / Time No Known Allergies Allergy Verified 05/10/24 13:20 COUNT INCLUDES THE [facility] Past Medical History Medical History Cataract Cholecystectomy planned Diabetes Hernia IBS (irritable bowel syndrome) Family History Family History Mother , heart attack No problems noted. Father , sepsis No problems noted. Grandparent , colon cancer No problems noted. Grandparent Colon cancer Grandparent Carcinoma of colon Grandparent Cerebrovascular accident Sibling FH: coronary artery bypass surgery Social History Social History Smoking status: Never smoker Alcohol intake: never Substance use: never Substance use type: does not use Lack of Transportation: No Lack of Food: Never True Current Housing: I Have Housing Concerned About Future Housing: No Difficulty Paying Gas/Electric Bills: No Difficulty Paying for Meds: No Currently Unemployed: No Education: High School Diploma/GED Difficulty w/ Childcare or Family Care: No Living arrangements: with family Spiritual care concerns: No Exam Narrative: APPEARANCE: No apparent distress. Head: atraumatic. EYES: EOMI, NOSE: Atraumatic NECK: Trachea midline RESPIRATORY: No increased rate of breathing clear to auscultation CARDIOVASCULAR: RRR, no peripheral edema ABDOMINAL: Non-distended MUSCULOSKELETAl: Tenderness to palpation over the left anterior ribcage no pain with AP or lateral loading reviewed. NEURO: Alert. Moving 4/4 extremities SKIN:: Warm, dry. Normal color PSYCHIATRIC: Normal affect Course Vital Signs Vital signs: Vital Signs Temperature 97.7 F 06/07/24 10:35 Pulse Rate 69 06/07/24 10:35 Respiratory Rate 16 06/07/24 10:35 Blood Pressure 151/68 H 06/07/24 10:35 Pulse Oximetry 98 06/07/24 10:35 Oxygen Delivery Room Air 06/07/24 10:35 Temperature 97.7 F 06/07/24 10:35 Pulse Rate 69 06/07/24 10:35 Respiratory Rate 16 06/07/24 10:35 Blood Pressure 151/68 H 06/07/24 10:35 Pulse Oximetry 98 06/07/24 10:35 Oxygen Delivery Room Air 06/07/24 10:35 Medical Decision Making MDM Narrative Medical decision making narrative: -Course: This is a 74-year-old female presenting several days after a fall. On exam she has tenderness over the left anterior rib cage. Vital signs stable with no respiratory distress. X-rays negative for displaced fracture or pneumothorax. CT did not show any acute findings. Patient with pain medication. Given incentive spirometer. Discharged with return precautions. -DDX includes but is not limited to: Rib fracture, rib contusion -Interventions: Tylenol, lidocaine patch -Shared decision making / Disposition: Discharge -RX Tylenol, lidocaine patch, Robaxin Vital Signs Vital Signs: Vital Signs Temperature 97.7 F 06/07/24 10:35 Pulse Rate 69 06/07/24 10:35 Resp
[2024-06-07 13:20] VITALS: BP 149/74; PULSE 59; RESP 18; TEMP 36.2; O2SAT 97
== END 2024-06-07 13:18 | disposition home or self-care (01) ==
PROVIDERS: Emergency Provider Emergency Medicine; PCP Nurse Practitioner Adult Health
DX: S20.212A Contusion of left front wall of thorax, initial encounter (principal); E11.9 Type 2 diabetes mellitus without complications; K58.9 Irritable bowel syndrome, unspecified; H26.9 Unspecified cataract; Z90.49 Acquired absence of other specified parts of digestive tract; Z79.84 Long term (current) use of oral hypoglycemic drugs; Z79.899 Other long term (current) drug therapy; W18.09XA Striking against other object with subsequent fall, initial encounter
CPT/HCPCS: 71101; 71250; 99284; A9270

== ENCOUNTER 2024-11-05 13:28 | Outpatient (CLI) | payer OTHER, SELFPAY | END 2024-11-05 13:29 | disposition home or self-care (01) | PROVIDERS: PCP Family Medicine; Visit Provider Family Medicine | DX: Z12.31 Encounter for screening mammogram for malignant neoplasm of breast (principal) | CPT/HCPCS: 77063; 77067 ==

== ENCOUNTER 2024-11-27 08:54 | Outpatient (CLI) | payer OTHER, SELFPAY ==
--- OUTSIDE RECORDS SUMMARY | 2024-11-27 09:38 | XMS_ITS | Encounter Summary ---
Author Organization [facility] Address [address] [place] [address] Care Team Providers Care Cash Accountant Name Role Phone Yanci Cummings MD Primary Care Provider [phone] Reason for Visit * Reason Comments Medication Refill Encounter Details Date Type Department Care Team (Late st Contact Info) Description 04/29/2019 Refill [facility] Primary Care - [facility] [address] [id number] [place] [address] Funmilayo Cronin, LAST MODEL MAKER [address] [place] [id number] Social History Tobacco Use Types Packs/Day Years Used Date Smoking Tobacco: Never Smokeless Tobacco: Never Alcohol Use Standard Drinks/Week Comments No 0 (1 standard drink = 0.6 oz pur e alcohol) Comments No Sex and Gender Information Value Date Recorded Sex Assigned at Not on file Legal Sex Female 12:24 PM CDT Gender Identity Not on file Sexual Orientation Not on file Occupation Industry Job Start Date Job End Date Retired. Not on file Not on file Not on file documented as of this encounter Plan of Treatment Not on file documented as of this encounter Visit Diagnoses Not on filedocumented in this encounter Care Teams Cash Accountant Relationship Specialty Start Date End Date Yanci Cummings MD PCP - General Internal Medicine 08/15/18 12/18/19 documented as of this encounter
--- OUTSIDE RECORDS SUMMARY | 2024-11-27 09:39 | XMS_ITS | Referral Summary ---
Author Organization [facility] [address] lto Address [address] [place] [address] Care Team Providers Care Amf Mechanic Name Role Phone Lobito Bowden MD Primary Care Provider [phone] Allergies No known active allergies Medications TURMERIC ORAL 1 tab twice a day Active doxepin (SINEquan) 10 mg/mL solution TAKE 0.5ML BY MOUTH AT BEDTIME FOR SLEEP 04/09/2021 Active ergocalciferol (VITAMIN D) 50,000 unit capsule Take 50,000 Units by mouth once a week 07/16/2019 Active lisinopril-hydr oCHLOROthiazide (ZESTORETIC) 20-12.5 mg per tablet Take 1 tablet by mouth 2 (two) times a day 04/30/2019 Active metFORMIN (GLUCOPHAGE) 500 mg tablet Take 1 tablet by mouth daily 03/24/2020 Active metFORMIN (GLUCOPHAGE) 500 mg tablet Take 500 mg by mouth daily 05/25/2021 Active omega 9-tpf-evg-fish oil 290-430-1.4 mg-mg-gram capsule Take 1 capsule by mouth daily Active simvastatin (ZOCOR) 40 mg tablet Take 1 tablet by mouth daily 04/30/2019 Active Active Problems Problem Noted Date Diagnosed Date Type 2 diabetes mellitus wit hout complication, without long-term current use of insulin 08/15/2018 Essential hypertension 07/10/2018 Mixed hyperlipidemia 07/10/2018 Right bundle branch block 07/10/2018 Vitamin D deficiency 07/10/2018 Social History Tobacco Use Types Packs/Day Years Used Date Smoking Tobacco: Never Smokeless Tobacco: Never Personal Safety Answer Date Recorded Getting School Help Needed Not on file 11/17 Comments Unknown Sex and Gender Information Value Date Recorded Sex Assigned at Not on file Legal Sex Female 3:53 AM SALES EFFECTIVENESS MANAGER Gender Identity Not on file Sexual Orientation Not on file Last Filed Vital Signs Vital Sign Reading Time Taken Comments Blood Pressure 132/62 06/10/2021 10:35 AM CDT Pulse 80 06/10/2021 10:35 AM CDT Temperature 36.7 C (98.1 F) 06/10/2021 10:35 AM CDT Respiratory Rate 14 06/10/2021 10:35 AM CDT Oxygen Saturation 97% 06/10/2021 10:35 AM CDT Inhaled Oxygen Concentration - - Weight 96.2 kg (212 lb) 06/10/2021 10:35 AM CDT Height 167.6 cm (5' 6 ) 06/10/2021 10:35 AM CDT Body Mass Index 34.22 06/10/2021 10:35 AM CDT Plan of Treatment Not on file Insurance [employer] Care Teams Amf Mechanic Relationship Specialty Start Date End Date Lobito Bwoden MD PCP - General Family Practice 06/09/21
--- OUTSIDE RECORDS SUMMARY | 2024-11-27 09:39 | XMS_ITS | Encounter Summary ---
Author Organization [facility] Address [address] [place] [address] Care Team Providers Care Hand Zipper Trimmer Name Role Phone Yanci Cummings MD Primary Care Provider [phone] Reason for Visit * Reason Comments Medication Refill Encounter Details Date Type Department Care Team (Late st Contact Info) Description 03/30/2019 Refill [facility] Primary Care - [facility] [address] [place] [address] Funmilayo Cronin, CARDIOLOGIST [address] [place] [phone] Social History Tobacco Use Types Packs/Day Years [...] on filedocumented in this encounter Care Teams Hand Zipper Trimmer Relationship Specialty Start Date End Date Yanci Cummings MD PCP - General Internal Medicine 08/15/18 12/18/19 documented as of this encounter
--- OUTSIDE RECORDS SUMMARY | 2024-11-27 09:39 | XMS_ITS | Clinical Summary ---
Author Organization [email or web address] Address [address] [place] [address] Care Team Providers Care Journeyman Millwright Name Role Phone Unavailable Primary Care Provider Unavailabl e Allergies No known active allergies Medications [id number] -Fish Oil 290-430-1.4 mg-mg-gram Capsule 1 cap daily Active TURMERIC ORAL 1 tab twice a day Active simvastatin (ZOCOR) 40 mg tablet TAKE ONE TABLET BY MOUTH ONCE DAILY. 90 Tablet 3 04/30/2019 Active lisinopril-hydr oCHLOROthiazide (ZESTORETIC) 20-12.5 mg tablet TAKE ONE TABLET BY MOUTH TWICE A DAY. 180 Tablet 3 04/30/2019 Active ergocalciferol (VITAMIN D2) 50,000 unit capsule Take 1 Capsule (50,000 Units) by mouth every 7 days. 12 Capsule 3 07/16/2019 Active metFORMIN (GLUCOPHAGE) 500 mg tablet TAKE ONE TABLET BY MOUTH ONCE DAILY 90 Tablet 03/24/2020 Active Active Problems Problem Noted Date Diagnosed Date skilled nursing current use of oral hypoglycemic drug 04/12/2019 Type 2 diabetes mellitus wit hout complication, without long-term current use of insulin 08/15/2018 Irritable bowel syndrome with diarrhea 8 Overview (08/15/2018): Trigger is tomatoes Essential hypertension 07/10/2018 Mixed hyperlipidemia 07/10/2018 Vitamin D deficiency 07/10/2018 Class 1 obesity due to exces s calories with serious comorbidity and body mass index (BMI) of 33.0 to 33.9 in adult 07/10/2018 Abnormal EKG 07/10/2018 Right bundle branch block 07/10/2018 Immunizations Immunization Administration Dates Next Due (ADACEL/BOOSTRIX)(10 YR UP) TDAP VACCINE, 0.5ML, IM 10/25/2016 (PNEUMOVAX 23)(50 YRS UP) PN EUMOCOCCAL POLYSACCHARIDE (PPV23) 0.5 ML, IM 08/15/2018 (PREVNAR 13)(6 WKS UP) PNEUM OCOCCAL CONJUGATE (PCV13) 0.5 ML, IM 07/26/2017 (SHINGRIX)(50 YRS UP) ZOSTER VACCINE RECOMBINANT, 0.5 ML, IM 07/28/2018,05/11/2018 Influenza Seasonal Unspecified Formulation IM Influenza Vaccine Tri Split 4+ Im 07/26/2017 Zoster Vaccine Live SQ 11/30/2016 Family History Medical History Relation Name Comments Healthy Brother Healthy Daughter 1 Healthy Daughter 2 Other Father bowel infarctio n Other Mother mi Healthy Sister Relation Name Status Comments Brother Alive Daughter 1 Alive Daughter 2 Alive Father Mother Sister Alive Social History Tobacco Use Types Packs/Day Years [...] file Not on file Not on file Last Filed Vital Signs Vital Sign Reading Time Taken Comments Blood Pressure 132/74 04/12/2019 9:30 AM CDT Pulse 74 04/12/2019 9:30 AM CDT Temperature 36.6 C (97.9 F) 04/12/2019 9:30 AM CDT Respiratory Rate 16 11/24/2018 8:51 AM CDT Oxygen Saturation 97% 04/12/2019 9:30 AM CDT Inhaled Oxygen Concentration - - Weight 93.9 kg (207 lb) 04/12/2019 9:30 AM CDT Height 167.6 cm (5' 6 ) 04/12/2019 9:30 AM CDT Body Mass Index 33.41 04/12/2019 9:30 AM CDT Plan of Treatment Health Maintenance Due Date Last Done Comments FIT-DNA Q 3 years 1997 Flex Sig/CT Colonography Q 5 years 1997 DIABETES MICROALBUMIN ANNUAL SCREEN 08/15/2019 08/15/2018 DIABETES HBA1C Q 6 MONTHS 10/13/20192018, 11/24/2018, 08/15/2018, Additional history exists DIABETES ANNUAL FOOT EXAM 11/25/2019 11/24/2018 FIT/FOBT Q 1 year 12/06/2019 12/05/2018 LDL CHOLESTEROL ANNUAL 04/12/2020 9, 08/15/2018, 10/10/2017 BREAST CANCER SCREENING 05/05/2020 05/05/20 19, 02/22/2018, 08/07/2016, Additional history exists DIABETES ANNUAL RETINAL EXAM 05/16/2020 05/16/2019, 04/12/2019 INFLUENZA VACCINE (#1) 2024 06/17/2018, 2016 COLORECTAL SCREENING 05/28/2026 05/28/2016 Colorectal Cancer Screening 05/28/2026 DTAP/TDAP/TD VACCINES (2 - T d or Tdap) 10/25/2026 10/25/2016 RSV VACCINE (60+ or ) (1 - 1-dose 75+ series) 2027 OSTEOPOROSIS SCREENING Completed 02/22/2018, 2017 ZOSTER VACCINE Completed 07/28/2018, 02/2018, 11/30/2016 PNEUMOCOCCAL VACCINE 50+ YEARS Completed 08/15/2018 , 07/26/2017 Procedures Procedure Name Priority Date/Time Associated Diagnosis Comments HM DIABETES EYE EXAM Routine 05/16/2019 MAMMO SCREEN BILAT W OR WO CAD Routine 05/05/2019 8:43 AM CDT Screening for breast cancer LIPID RFLX Routine 04/12/2019 10:14 AM CDT Mixed hyperlipidemia HEMOGLOBIN A1C Routine 04/12/2019 10:14 AM CDT Type 2 diabetes mellitus without complication, without long-term current use of insulin ([facility]) POC OCCULT BLOOD, IMMUNO, QUAL, STOOL Routine 12/05/2018 12:39 PM CDT Screening for colon cancer POC MICROALB/CREAT RATIO URINE QUANT Routine 08/15/2018 9:39 AM EXPENSE CLERK Type 2 diabetes mellitus without complication, without long-term current use of insulin ([facility]) XR DEXA BONE DENSITY W VERTEBRAL FX Routine 02/22/2018 COLONOSCOPY REPORT Routine 05/28/2016 from Last 3 Months or Most Recently Relevant to Health Maintenance Results * DIABETES EYE EXAM (05/16/2019) us Abstract Provider HEALTH MAINTENANCE Edited Resu lt - Final [facility] JASON MICHAEL CLIA# [id number] [address] [place] [address] * MAMMO SCREEN BILAT W OR WO CAD (05/05/2019 8:43 AM CDT) Anatomical Region Laterality Modality Breast Bilateral Mammography 05/05/2019 8:43 AM CDT Impressions 05/08/2019 8:41 AM CDT IMPRESSION: No mammographic evidence of malignancy. RECOMMENDATIONS: Routine screening mammogram in one year. DICTATION LOCATION: [facility] Narrative 05/08/2019 8:41 AM CDT MAMMO SCREEN BILAT W OR WO CAD DATE: 05/05/2019 8:43 AM HISTORY: Routine screening. TECHNIQUE: Full field digital craniocaudal and mediolateral oblique projections of both breasts were obtained. Computer aided diagnosis was performed. COMPARISON: 02/22/2018. BREAST COMPOSITION: Scattered fibroglandular densities. FINDINGS: No suspicious mass, suspicious microcalcifications, or architectural distortion in either breast is identified. Since the prior study, there has been no significant interval change. The computer aided diagnosis detects no significant abnormality. OVERALL FINAL ASSESSMENT: BI-RADS CATEGORY 1: Negative. Procedure Note Kwesi Arcos MD - 05/08/2019 MAMMO SCREEN BILAT W OR WO CAD DATE: 05/05/2019 8:43 AM HISTORY: Routine screening. TECHNIQUE: Full field digital craniocaudal and mediolateral oblique projections of both breasts were obtained. Computer aided diagnosis was performed. COMPARISON: 02/22/2018. BREAST COMPOSITION: Scattered fibroglandular densities. FINDINGS: No suspicious mass, suspicious microcalcifications, or architectural distortion in either breast is identified. Since the prior study, there has been no significant interval change. The computer aided diagnosis detects no significant abnormality. OVERALL FINAL ASSESSMENT: BI-RADS CATEGORY 1: Negative. IMPRESSION: No mammographic evidence of malignancy. RECOMMENDATIONS: Routine screening mammogram in one year. DICTATION LOCATION: [facility] us Yanci Cummings MD MAMMO ORDERABLES Final Result * (ABNORMAL) LIPID RFLX (04/12/2019 10:14 AM CDT) CHOLESTEROL 117 <200 mg/dL 04/12/2019 11:38 AM CDT [facility] TRIGLYCERIDE 167(H) <150 mg/dL 04/12/2019 11:38 AM CDT [facility] HDL 35(L) >57 mg/dL 04/12/2019 11:38 AM CDT [facility] LDL CALCULATED 49 <100 mg/dL 04/12/2019 11:38 AM CDT [facility] NON-HDL CHOLESTEROL 82 <130 mg/dL 04/12/2019 11:38 AM CDT [facility] Blood Venipuncture / Unknown 04/12/2019 10:14 AM CDT 04/12/2019 10:14 AM CDT Narrative [facility] - 04/12/2019 11:38 AM CDT TOTAL CHOLESTEROL mg/dL Desirable <200 Borderline high 200-239 High >=240 TRIGLYCERIDES mg/dL Normal <150 Borderline high 150-199 High 200-499 Very high >=500 HDL CHOLESTEROL mg/dL Low <40 Normal 40-59 Desirable >=60 NON HDL CHOLESTEROL mg/dL Optimal <130 Near Optimal 130-159 Borderline High 160-189 Very High >=190 Calculated LDL mg/dL Optimal <100 Near Optimal 100-129 Borderline High 130-159 High 160-189 Very High >=190 ATPIII Guidelines Reference Ranges for Lipid Panels (NCEP/AMA) us Yanci Cummings MD CHEMISTRY ORDERABLES Final Resul t [facility] Yasuu [facility] CLIA# [id number] [address] [place] [address] * (ABNORMAL) HEMOGLOBIN A1C (04/12/2019 10:14 AM CDT) HEMOGLOBIN A1C 6.6(H) See comment % 04/12/2019 11:17 AM CDT [facility] EST. AVG GLUCOSE, A1C 143 mg/dL 04/12/2019 11:17 AM CDT [facility] Blood Venipuncture / Unknown 04/12/2019 10:14 AM CDT 04/12/2019 10:14 AM CDT Narrative [facility] - 04/12/2019 11:17 AM CDT HGB A1C INTERPRETATION NORMAL: <5.7% PRE-DIABETES: 5.7 - 6.4% DIABETES: 6.5% OR GREATER us Yanci Cummings MD CHEMISTRY ORDERABLES Final Resul t [facility] CLIA# [id number] [place] [address] * POC OCCULT BLOOD, IMMUNO, QUAL, STOOL (12/05/2018 12:39 PM CDT) Pathologist [facility] OCCULT BLOOD, IMMUNOASSAY POC Negative Negative [facility] [address] INTERNAL KIT QC Pass Pass [facility] [address] K[address] POC [id number] [facility] [address] KIT EXPIRATION DATE POC 12/04/2019 [facility] [address] Stool STOOL SPECIMEN / Unknown 12/05/2018 12:39 PM CDT us Yanci Cummings MD POINT OF CARE TESTING Final Resu lt [facility] [address] CLIA# [id number] [address] * POC MICROALB/CREAT RATIO URINE QUANT (08/15/2018 9:39 AM EXPENSE CLERK) MICROALBUMIN, URINE POC 11.5 mg/dL [facility] [address] CREATININE, URINE POC 187.4 mg/dL [facility] [address] MICROALBUMIN/CR EAT RATIO, URINE POC 6.1 mg/g [facility] [address] Urine 08/15/2018 9:39 AM EXPENSE CLERK us Yanci Cummings MD POINT OF CARE TESTING Final Resu lt [facility] [address] CLIA# [id number] [place] [address] * XR DEXA BONE DENSITY W VERTEBRAL FX (02/22/2018) Anatomical Region Laterality Modality Spine Other us Abstract Provider DIAGNOSTIC IMAGING ORDERABLES Final Result * COLONOSCOPY REPORT (05/28/2016) us Abstract Provider GI PROCEDURE ORDERABLES Final Result [facility] [place] CLIA# [id number] [address] [place] [address] from Last 3 Months or Most Recently Relevant to Health Maintenance Insurance [facility]
--- OUTSIDE RECORDS SUMMARY | 2024-11-27 09:39 | XMS_ITS | Clinical Summary ---
Author Organization [facility] [address] [facility] [address] Address [address] [facility] [address] Care Team Providers Care Structural Iron Erector Name Role Phone Lobito Bowden MD Primary Care Provider [phone] Allergies No known active allergies Medications TURMERIC [...] mg by mouth daily 05/25/2021 Active omega 5-cfi-uxf-fish oil 290-430-1.4 mg-mg-gram capsule Take 1 capsule by mouth daily Active simvastatin (ZOCOR) 40 mg tablet Take 1 tablet by mouth daily 04/30/2019 Active Active Problems Problem Noted Date Diagnosed Date Type 2 diabetes mellitus wit hout complication, without long-term current use of insulin 08/15/2018 Essential hypertension 07/10/2018 Mixed hyperlipidemia 07/10/2018 Right bundle branch block 07/10/2018 Vitamin D deficiency 07/10/2018 Surgical History Surgery Date Site/Laterality Comments HERNIA REPAIR CHOLECYSTECTOMY CATARACT EXTRACTION Medical History Medical History Date Comments Hyperlipidemia Hypertension Family History Medical History Relation Name Comments Heart disease Mother Relation Name Status Comments Father Mother Social History Tobacco Use Types Packs/Day Years Used Date Smoking Tobacco: Never Smokeless Tobacco: Never Personal Safety Answer Date Recorded Getting School Help Needed Not on file 11/17 Comments Unknown Sex and Gender Information Value Date Recorded Sex Assigned at Not on file Legal Sex Female 3:53 AM STRATEGIC PLANNING SPECIALIST Gender Identity Not on file Sexual Orientation Not on file Obstetrics History Last Filed Vital Signs Vital Sign Reading [...] Plan of Treatment Not on file Insurance [employer] Care Teams Structural Iron Erector Relationship Specialty Start Date End Date Lobito Bowden MD PCP - General Family Practice 06/09/21
[2024-11-27 19:43] LABS: Alanine Aminotransferase 46 U/L (6-35); Albumin Level 4.5 g/dL (3.5-5.1); Alkaline Phosphatase 52 U/L (38-126); Anion Gap 11 mmol/L (4-12); Aspartate Amino Transferase 59 U/L (14-36); Bilirubin,Total 0.7 mg/dL (0.2-1.3); Blood Urea Nitrogen 12 mg/dL (7-17); Calcium 9.3 mg/dL (8.4-10.2); Carbon Dioxide 26 mmol/L (22-30); Chloride 100 mmol/L (98-107); Cholesterol 124 mg/dL (0-200); Estimated Glomerular Filt Rate > 60; Glucose 99 mg/dL (65-110); HDL Direct 31 mg/dL; Potassium 4.1 mmol/L (3.4-5.0); Sodium 137 mmol/L (137-145); Triglycerides 270 mg/dL (<150)
[2024-11-27 19:54] LABS: LDL Cholesterol Direct 40 mg/dL
[2024-11-27 20:02] LABS: Creatinine Urine 129.5 mg/dL
[2024-11-27 20:11] LABS: MALB Creatinine Ratio 13.7 mg/g (0-30); Microalbumin Urine Random 17.7 mg/L (0-16.7)
[2024-11-27 20:41] LABS: Vitamin D 25 Hydroxy 37.4 ng/mL
[2024-11-27 21:09] LABS: Hemoglobin A1C 6.6 % (<5.7)
== END 2024-11-27 08:55 | disposition home or self-care (01) ==
PROVIDERS: PCP Nurse Practitioner Adult Health; Visit Provider Nurse Practitioner Adult Health
DX: E11.9 Type 2 diabetes mellitus without complications (principal); R79.89 Other specified abnormal findings of blood chemistry; Z79.899 Other long term (current) drug therapy
CPT/HCPCS: 36415; 80053; 80061; 82043; 82306; 82565; 83036

== ENCOUNTER 2025-04-03 08:02 | Outpatient (CLI) | payer OTHER, SELFPAY ==
--- OUTSIDE RECORDS SUMMARY | 2025-04-03 08:12 | XMS_ITS | Encounter Summary ---
Author Organization [facility] Address [address] [place] [address] Care Team Providers Care Bag Sewer Name Role Phone Yanci Cummings MD Primary Care Provider [phone] Reason for Visit * Reason Comments Medication Refill Encounter Details Date Type Department Care Team (Late st Contact Info) Description 03/30/2019 Refill [facility] Primary Care - [facility] [address] [place] [address] Funmilayo Cronin, PATIENT REGISTRATION REP [address] [place] [address] Social History Tobacco Use Types Packs/Day Years [...] on filedocumented in this encounter Care Teams Bag Sewer Relationship Specialty Start Date End Date Yanci Cummings MD PCP - General Internal Medicine 08/15/18 12/18/19 documented as of this encounter
--- OUTSIDE RECORDS SUMMARY | 2025-04-03 08:12 | XMS_ITS | Referral Summary ---
Author Organization [facility] [address] [facility] lto Address [address] [place] [address] Care Team Providers Care Wound Treatment Rn Name Role Phone Lobito Bowden MD Primary Care Provider [phone] Allergies No known active allergies Medications TURMERIC [...] mg by mouth daily 05/25/2021 Active omega 9-aca-bpp-fish oil 290-430-1.4 mg-mg-gram capsule Take 1 capsule [...] on file Legal Sex Female 3:53 AM ENERGY SYSTEMS ENGINEER Gender Identity Not on file Sexual Orientation [...] 10:35 AM CDT Height 167.6 cm (5' 6) 06/10/2021 10:35 AM CDT Body Mass Index 34.22 06/10/2021 10:35 AM CDT Plan of Treatment Not on file Insurance [employer] Care Teams Wound Treatment Rn Relationship Specialty Start Date End Date Lobito Bowden MD PCP - General Family Practice 06/09/21
--- OUTSIDE RECORDS SUMMARY | 2025-04-03 08:12 | XMS_ITS | Encounter Summary ---
Author Organization [facility] Address [address] [place] [address] Care Team Providers Care Human Resources Advisor Name Role Phone Yanci Cummings MD Primary Care Provider [phone] Reason for Visit * Reason Comments Medication Refill Encounter Details Date Type Department Care Team (Late st Contact Info) Description 04/29/2019 Refill [facility] Primary Care - [facility] [address] [place] [address] Funmilayo Cronin, CERTIFIED COURT INTERPRETER [address] [place] [address] Social History Tobacco Use Types Packs/Day Years [...] on filedocumented in this encounter Care Teams Human Resources Advisor Relationship Specialty Start Date End Date Yanci Cummings MD PCP - General Internal Medicine 08/15/18 12/18/19 documented as of this encounter
--- OUTSIDE RECORDS SUMMARY | 2025-04-03 08:12 | XMS_ITS | Clinical Summary ---
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 04/12/2019 [...] 9:30 AM CDT Height 167.6 cm (5' 6) 04/12/2019 9:30 AM CDT Body Mass Index [...] DIABETES ANNUAL RETINAL EXAM 05/16/2020 05/16/2019, 04/12/2019 OSTEOPOROSIS SCREENING 02/22/2023 02/22/2018, 2017 INFLUENZA VACCINE (#1) 2025 06/17/2018, 2016 COLORECTAL SCREENING 05/28/2026 05/28/2016 Colorectal Cancer Screening 05/28/2026 DTAP/TDAP/TD VACCINES (2 - T d or Tdap) 10/25/2026 10/25/2016 RSV VACCINE (60+ or ) (1 - 1-dose 75+ series) 2027 ZOSTER VACCINE Completed 07/28/2018, 02/2018, 11/30/2016 PNEUMOCOCCAL [...] complication, without long-term current use of insulin ([facility]) POC OCCULT BLOOD, IMMUNO, QUAL, STOOL Routine 12/05/2018 12:39 PM CDT Screening for colon cancer POC MICROALB/CREAT RATIO URINE QUANT Routine 08/15/2018 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 Type 2 diabetes mellitus without complication, without long-term current use of insulin ([facility]) XR DEXA BONE DENSITY W VERTEBRAL FX Routine 02/22/2018 COLONOSCOPY REPORT Routine 05/28/2016 from Last 3 Months or Most Recently Relevant to Health Maintenance Results * DIABETES EYE EXAM (05/16/2019) us Abstract Provider HEALTH MAINTENANCE Edited Resu lt - Final [facility] JASON MICHAEL CLIA# [id number] [address] [place] [address] * MAMMO SCREEN BILAT W OR WO CAD (05/05/2019 8:43 AM CDT) Anatomical Region Laterality Modality Breast Bilateral Mammography 05/05/2019 8:43 AM CDT Impressions 05/08/2019 8:41 AM CDT IMPRESSION: No mammographic evidence of malignancy. RECOMMENDATIONS: Routine screening mammogram in one year. DICTATION LOCATION: [facility] Narrative 05/08/2019 8:41 AM CDT MAMMO SCREEN [...] screening mammogram in one year. DICTATION LOCATION: [facility] Yanci Cummings MD MAMMO ORDERABLES Final Result * (ABNORMAL) LIPID RFLX (04/12/2019 10:14 AM CDT) CHOLESTEROL 117 <200 mg/dL 04/12/2019 11:38 AM CDT [facility] TRIGLYCERIDE 167(H) <150 mg/dL 04/12/2019 11:38 AM CDT [facility] HDL 35(L) >57 mg/dL 04/12/2019 11:38 AM CDT [facility] LDL CALCULATED 49 <100 mg/dL 04/12/2019 11:38 AM CDT [facility] NON-HDL CHOLESTEROL 82 <130 mg/dL 04/12/2019 11:38 AM CDT [facility] Blood Venipuncture / Unknown 04/12/2019 10:14 AM CDT 04/12/2019 10:14 AM CDT Narrative [facility] - 04/12/2019 11:38 AM CDT TOTAL CHOLESTEROL [...] Cummings MD CHEMISTRY ORDERABLES Final Resul t [facility] CLIA# [id number] [address] [place] [address] * (ABNORMAL) HEMOGLOBIN A1C (04/12/2019 10:14 AM CDT) HEMOGLOBIN A1C 6.6(H) See comment % 04/12/2019 11:17 AM CDT [facility] EST. AVG GLUCOSE, A1C 143 mg/dL 04/12/2019 11:17 AM CDT [facility] Blood Venipuncture / Unknown 04/12/2019 10:14 AM CDT 04/12/2019 10:14 AM CDT Narrative [facility] - 04/12/2019 11:17 AM CDT HGB A1C INTERPRETATION NORMAL: <5.7% PRE-DIABETES: 5.7 - 6.4% DIABETES: 6.5% OR GREATER Yanci Cummings MD CHEMISTRY ORDERABLES Final Resul t Performing Organization Address City/[facility]/ZIP Co de Phone Number [facility] CLIA# [id number] [place] [address] * POC OCCULT BLOOD, IMMUNO, QUAL, STOOL (12/05/2018 12:39 PM CDT) [facility] OCCULT BLOOD, IMMUNOASSAY POC Negative Negative [facility] [address] INTERNAL KIT QC Pass Pass [facility] [address] KIT [address] NUM[address] POC [id number] [facility] [address] KIT EXPIRATION DATE POC 12/04/2019 [facility] [address] Stool STOOL SPECIMEN / Unknown 12/05/2018 12:39 PM CDT Yanci Cummings MD POINT OF CARE TESTING Final Resu lt [facility] [address] CLIA# [id number] [address] * POC MICROALB/CREAT RATIO URINE QUANT (08/15/2018 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) MICROALBUMIN, URINE POC 11.5 mg/dL [facility] [address] CREATININE, URINE POC 187.4 mg/dL [facility] [address] MICROALBUMIN/CR EAT RATIO, URINE POC 6.1 mg/g [facility] [address] Urine 08/15/2018 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 us Yanci Cummings MD POINT OF CARE TESTING Final Resu lt [facility] [address] CLIA# [id number] [address] [place] [address] * XR DEXA BONE DENSITY W VERTEBRAL FX (02/22/2018) Anatomical Region Laterality Modality Spine Other us Abstract Provider DIAGNOSTIC IMAGING ORDERABLES Final Result * COLONOSCOPY REPORT (05/28/2016) us Abstract Provider GI PROCEDURE ORDERABLES Final Result [facility] CLIA# [id number] [address] [place] [address] from Last 3 Months or Most Recently Relevant to Health Maintenance Insurance [facility]
--- OUTSIDE RECORDS SUMMARY | 2025-04-03 08:12 | XMS_ITS | Clinical Summary ---
Author Organization [facility] [address] [facility] lto Address [address] [place] [address] Care Team Providers Care Manager Program Name Role Phone Lobito Bowden MD Primary Care Provider [phone] Allergies No known active allergies Medications TURMERIC [...] mg by mouth daily 05/25/2021 Active omega 8-uvw-tfo-fish oil 290-430-1.4 mg-mg-gram capsule Take 1 capsule [...] on file Legal Sex Female 3:53 AM FANCY STITCHER Gender Identity Not on file Sexual Orientation [...] on file Insurance [employer] Care Teams Manager Program Relationship Specialty Start Date End Date Lobito Bowden MD PCP - General Family Practice 06/09/21
--- OUTSIDE RECORDS SUMMARY | 2025-04-03 08:12 | XMS_ITS | Continuity of Care Document ---
Author Organization [facility] Address [address] [place] [address] [address] [place] [address] Phone Care Team Providers Care Gas Line Repairer Name Role Phone Ryan CHUN, Darin Unavailable Unavaila ble Procedures Procedure Date OFFICE/OUTPATIENT VISIT, EST OFFICE/OUTPATIENT VISIT, EST OFFICE/OUTPATIENT VISIT, EST Advance Directives Directive Yes / No Effective Date File Name No Information Encounters Encounter Description Practice Location Reason(s) For Visit Diagnoses Date Provider Providers Copied on Encounter OFFICE/OUTPAT IENT VISIT, [facility] Ophthalmology [facility], [address] [place] [address], [id number], tel:[phone] OPH CONSULT LÓPEZ RAO No Information 1 Ryan Darin. [address] , [address], [place], [place], [id number], [place]. tel:[phone] OFFICE/OUTPAT IENT VISIT, [facility] Ophthalmology [facility], [address] [place] [address], [id number], tel:[phone] OPH CONSULT LÓPEZ RAO No Information 1 Ryan Darin. [address], [place], [place], [id number], [place]. tel:[phone] OFFICE/OUTPAT IENT VISIT, [facility], [address] [place] [address], [id number], tel:[phone] OPH CONSULT LÓPEZ RAO No Information 1 Ryan Darin. [address], [place], [place], [id number], [place]. tel:[phone] Family History Family Member Type Diagnosis Age At Onset No Information Payers Payer name Insurance type Covered constitution party ID Authordebby dumont(s) [facility] [id number] Social History Type Description Quantity Date Captured Comments Sex Female Smoking Status No Information Chief Complaint And Reason For Visit No Information Reason For Referral Reason For Referral No Information History Of Present Illness Encounter Date Complaint History Of Prese nt Illness No Information Functional Status Date Functional Assessmen t No Information Instructions Date Instruction Additional Infor mation No Information Assessments Type Assessment Date No Information Patient Care Teams Name Effective Dates (start - stop) Status Members No Information
[2025-04-03 19:40] LABS: Add Urine Microscopic? NO; Appearance Urine Clear (Clear); Glucose Urine UA 3+ mg/dL (Negative); Leukocyte Esterase Ur Negative LEU/UL (Negative); Nitrate Urine Negative (Negative); Specific Grav Ur 1.022 (1.001-1.035)
[2025-04-03 19:55] LABS: Hematocrit 49.7 % (37.0-47.0); Hemoglobin 15.5 g/dL (12.0-15.0); Mean Corpuscular HGB Conc 31.2 g/dl (32-36); Mean Corpuscular Hemoglobin 28.5 pg (26-34); Mean Corpuscular Volume 91.4 fl (80-100); Platelet Count Result 305 k/mm3 (150-375); Red Blood Count 5.44 M/mm3 (4.2-5.4); White Blood Count 11.5 K/mm3 (4.5-10.0)
[2025-04-03 20:05] LABS: Alanine Aminotransferase 35 U/L (6-35); Albumin Level 4.7 g/dL (3.5-5.1); Alkaline Phosphatase 56 U/L (38-126); Anion Gap 11 mmol/L (4-12); Aspartate Amino Transferase 52 U/L (14-36); Bilirubin,Total 0.6 mg/dL (0.2-1.3); Blood Urea Nitrogen 19 mg/dL (7-17); Calcium 9.9 mg/dL (8.4-10.2); Carbon Dioxide 23 mmol/L (22-30); Chloride 98 mmol/L (98-107); Cholesterol 136 mg/dL (0-200); Estimated Glomerular Filt Rate > 60; Glucose 115 mg/dL (65-110); HDL Direct 29 mg/dL; Potassium 4.9 mmol/L (3.4-5.0); Sodium 132 mmol/L (137-145); Total Protein 8.6 g/dL (6.3-8.2); Triglycerides 310 mg/dL (<150)
[2025-04-03 20:33] LABS: MALB Creatinine Ratio 14.5 mg/g (0-30)
[2025-04-03 20:34] LABS: Hemoglobin A1C 6.7 % (<5.7)
[2025-04-03 20:59] LABS: Vitamin B12 436.0 pg/mL (239-931)
== END 2025-04-03 08:03 | disposition home or self-care (01) ==
PROVIDERS: PCP Nurse Practitioner Adult Health; Visit Provider Nurse Practitioner Adult Health
DX: E55.9 Vitamin D deficiency, unspecified (principal); E78.5 Hyperlipidemia, unspecified; N39.0 Urinary tract infection, site not specified; E11.9 Type 2 diabetes mellitus without complications; R20.2 Paresthesia of skin; R42 Dizziness and giddiness
CPT/HCPCS: 36415; 80053; 80061; 81003; 82043; 82306; 82565; 82607; 83036; 85027; 87086

== ENCOUNTER 2025-07-24 08:56 | Outpatient (CLI) | payer OTHER, SELFPAY ==
[2025-07-24 19:24] LABS: MALB Creatinine Ratio < 19.6 mg/g (0-30)
[2025-07-24 19:28] LABS: Alanine Aminotransferase 33 U/L (6-35); Albumin Level 4.9 g/dL (3.5-5.1); Alkaline Phosphatase 61 U/L (38-126); Anion Gap 9 mmol/L (4-12); Aspartate Amino Transferase 72 U/L (14-36); Bilirubin,Total 0.7 mg/dL (0.2-1.3); Blood Urea Nitrogen 16 mg/dL (7-17); Calcium 9.7 mg/dL (8.4-10.2); Carbon Dioxide 27 mmol/L (22-30); Chloride 100 mmol/L (98-107); Cholesterol 122 mg/dL (0-200); Estimated Glomerular Filt Rate > 60; Glucose 103 mg/dL (65-110); HDL Direct 29 mg/dL; Potassium 4.5 mmol/L (3.4-5.0); Sodium 136 mmol/L (137-145); Total Protein 8.7 g/dL (6.3-8.2); Triglycerides 276 mg/dL (<150)
[2025-07-24 19:49] LABS: Hemoglobin A1C 6.3 % (<5.7)
== END 2025-07-24 08:57 | disposition home or self-care (01) ==
PROVIDERS: PCP Nurse Practitioner Adult Health; Visit Provider Nurse Practitioner Adult Health
DX: E78.5 Hyperlipidemia, unspecified (principal); E11.9 Type 2 diabetes mellitus without complications; E55.9 Vitamin D deficiency, unspecified
CPT/HCPCS: 36415; 80053; 80061; 82043; 82306; 82565; 83036